=== PATIENT | male | born 1975 | race Two or more races ===

== ENCOUNTER 2021-01-16 05:30 | Day surgery (SDC) | payer OTHER ==
[~2021-01-16 05:30] MED LIST: ATORVASTATIN CA20 MG PO; GABAPENT PO; HUMUL; IRBESARTAN-HCT1 EAC1 PO; LANTUS; LEVOXYL50 MCG PO; METFORMIN HCL1000 M2 PO; TOPROL XL25 M1 PO
[2021-01-16] MEDS ORDERED: CORTISPORIN-TC10 M1 OT (12:20)
[2021-01-16] MEDS ORDERED: ZOFRAN8 MG PO (12:20)
[2021-01-16] MEDS ORDERED: AMOXICILLIN500 M1 PO (12:20)
== END 2021-01-16 16:30 | disposition home or self-care (01) ==
LOC: CIR.AMB 05:30
PROVIDERS: ATTEND Otolaryngology Otology & Neurotology
DX: H90.12 Conductive hearing loss, unilateral, left ear, with unrestricted hearing on the contralateral side (principal); Z20.822 Contact with and (suspected) exposure to COVID-19

== ENCOUNTER 2021-01-23 11:53 | Outpatient (CLI) | payer OTHER ==
[~2021-01-23 11:53] MED LIST changes: +AMOXICILLIN500 M1 PO; +CORTISPORIN-TC10 M1 OT; +ZOFRAN8 MG PO
== END 2021-01-23 12:33 | disposition home or self-care (01) ==
LOC: OFIC 805 11:53
PROVIDERS: ATTEND Otolaryngology Otology & Neurotology
DX: H72.92 Unspecified perforation of tympanic membrane, left ear (principal); H90.12 Conductive hearing loss, unilateral, left ear, with unrestricted hearing on the contralateral side

== ENCOUNTER 2021-02-11 08:00 | Outpatient (CLI) | payer OTHER | END 2021-02-11 09:54 | disposition home or self-care (01) | LOC: OFIC 805 08:00 | PROVIDERS: ATTEND Otolaryngology Otology & Neurotology | DX: H72.92 Unspecified perforation of tympanic membrane, left ear (principal); H90.12 Conductive hearing loss, unilateral, left ear, with unrestricted hearing on the contralateral side ==